=== PATIENT | male | born 1975 ===

== ENCOUNTER 2022-02-21 16:40 | Emergency (ER) | payer SELFPAY ==
[2022-02-21] MEDS ORDERED: Ketorolac Tromethamine 30 MG/ML VIAL ONE ×2 (17:08→17:12)
[2022-02-21] MEDS ORDERED: HYDROcodone/Acetaminophen 5/325 mg Tablet ONE (17:08)
== END 2022-02-21 19:06 | disposition home or self-care (01) ==
LOC: ERS 16:40
DX: S83.92XA Sprain of unspecified site of left knee, initial encounter (principal); I10 Essential (primary) hypertension; F17.210 Nicotine dependence, cigarettes, uncomplicated; X50.1XXA Overexertion from prolonged static or awkward postures, initial encounter
CPT/HCPCS: 96372; J1885